=== PATIENT | male | born 1985 | race Caucasian/White ===

== ENCOUNTER 2018-09-29 11:21 | Emergency (ER) | payer MEDICAID, MEDICARE, OTHER ==
[~2018-09-29] VITALS: Ht 188 cm; Wt 80.0 kg
[2018-09-29] MEDS ORDERED: DIPHENHYDRAMINE 50MG/ML VIAL IM STA (11:43)
[2018-09-29] MEDS ORDERED: LORAZEPAM 2MG/ML CPJ IM STA (11:43)
[2018-09-29] MEDS ORDERED: SODIUM CHLORIDE 0.9% 1,000 ML IV ONE (11:43)
[2018-09-29] MEDS ORDERED: HALOPERIDOL LACTATE 5MG/ML VIAL IM STA (11:43)
[2018-09-29 13:31] LABS: BASOPHILS % 0.5 % (0.0-2.0); EOSINOPHILS % 3.5 % (0.0-5.0); HEMATOCRIT. 41.5 % (42.0-52.0); LYMPHOCYTES % 11.9 % (20.0-50.0); MEAN CORPUSCULAR HEMOGLOBIN 29.4 pg (28.0-32.0); MEAN CORPUSCULAR VOLUME 87.2 fL (80.0-94.0); MEAN PLATELET VOLUME 8.3 fl (7.4-10.4); MONOCYTES % 10.3 % (2.0-8.0); NEUTROPHILS % 73.8 % (40.0-76.0); PLATELET 237 x1000/uL (130-400); RED BLOOD CELL COUNT 4.76 mill/uL (4.7-6.1); RED CELL DISTRIBUTION WIDTH 15.1 % (11.6-14.6)
[2018-09-29 13:37] LABS: CHLORIDE 105 mEq/L (98-107)
[2018-09-29 13:41] LABS: ETHANOL BLOOD < 10 mg/dL
[2018-09-29 14:41] LABS: CLARITY URINE CLEAR (CLEAR); COLOR URINE YELLOW (YELLOW); KETONES URINE 1+ (NEGATIVE); LEUKOCYTE ESTERASE URINE NEGATIVE (NEGATIVE); NITRITE URINE NEGATIVE (NEGATIVE); OCCULT BLOOD URINE NEGATIVE (NEGATIVE); PH URINE 6.5 (4.5-8.0); PROTEIN URINE NEGATIVE (NEGATIVE); SPECIFIC GRAVITY URINE 1.024 (1.005-1.030)
[2018-09-29 15:20] LABS: *AMPHETAMINES SCREEN URINE NEGATIVE (NEGATIVE); *BARBITURATES SCREEN URINE NEGATIVE (NEGATIVE); *BENZODIAZEPINES SCREEN URINE NEGATIVE (NEGATIVE); *COCAINE SCREEN URINE NEGATIVE (NEGATIVE)
[2018-09-29 15:21] LABS: CANNABINOID URINE SCREEN PRESUMTIVE POSITIVE (NEGATIVE); METHADONE URINE SCREEN NEGATIVE (NEGATIVE); OPIATES URINE SCREEN NEGATIVE (NEGATIVE)
[2018-09-29 15:22] LABS: PHENCYCLIDINE URINE SCREEN NEGATIVE (NEGATIVE)
[2018-09-30] MEDS ORDERED: LORAZEPAM 2MG/ML CPJ IM ONE ×2 (02:15→20:00)
[2018-09-30] MEDS ORDERED: ZIPRASIDONE MESYLATE 20MG/VIAL IM ONE ×2 (02:15→14:45)
[2018-10-01] MEDS ORDERED: ZIPRASIDONE MESYLATE 20MG/VIAL IM ONE (01:15)
[2018-10-01] MEDS ORDERED: LORAZEPAM 1MG TABLET PO ONE (12:00)
[2018-10-01 12:03] VITALS: BP 130/68
== END 2018-10-01 12:31 ==
LOC: ER 11:21 → EDBD 11:21 → ER 10-01 12:31
DX: F23 Brief psychotic disorder (principal); R45.851 Suicidal ideations; F12.90 Cannabis use, unspecified, uncomplicated; R45.1 Restlessness and agitation; Z78.1 Physical restraint status
CPT/HCPCS: 36415; 80053; 80305; 80307; 80329; 81003; 85025; 93005; 96360; 96361; 96372; 99284; G0482; J1200; J1630; J2060; J3486; J7030